=== PATIENT | female | born 2000 | race American Indian/Alaskan Native ===

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

== ENCOUNTER 2021-11-12 14:45 | Emergency (ER) | payer OTHER ==
--- NOTE | 2021-11-12 15:15 | Emergency Department Report ---
Stated Complaint: FEVER AND BACK PAIN Time Seen by Provider: 11/12/21 15:14 - HPI History of Present Illness: 20-year-old white female presents to the emergency department for evaluation of 1 day history of fever and back pain. She states that she is also having some nausea and vomiting, but denies abdominal pain, diarrhea, dysuria, and vaginal discharge. - ROS Review of Systems: Fever, back pain, nausea, vomiting. - Exam Physical Exam: Physical exam unremarkable MSE screening note: Focused history and physical exam performed. Due to findings the following was ordered: UA urine Tylenol chest x- ray Patient to be evaluated by provider when she gets in the room. ED Disposition for MSE Condition: Stable
[2021-11-12 15:18] VITALS: BP 132/92
[2021-11-12] MEDS ORDERED: ACETAMINOPHEN 325 MG/10.15 ML ORAL LIQD UNIT DOSE PO ONE (15:19)
[2021-11-12 18:38] LABS: Bilirubin,Urine NEG (Negative); Blood,Urine MOD (Negative); Color,Urine Amber (Yellow); Urobilinogen,Urine < 2.0 mg/dL (<2.0)
[2021-11-12 18:46] LABS: HCG Qualitative,Urine Negative (Negative); Mucus,Urine 3+ /HPF
== END 2021-11-12 21:00 | disposition left against medical advice (07) ==
LOC: ED 14:45
DX: M54.9 Dorsalgia, unspecified (principal); R50.9 Fever, unspecified; Z53.21 Procedure and treatment not carried out due to patient leaving prior to being seen by health care provider
CPT/HCPCS: 81001; 81025; 87086; 99282